=== PATIENT | female | born 1950 | race Caucasian/White ===

== ENCOUNTER → 2021-07-31 | Outpatient (CLI) | payer MEDICARE, BC ==
[~2021-07-31] MED LIST: ASPI81CH PO; CALCA400CH; MECL12.5 PO; Multiple Vitam1 EAC1 PO; VERA240ERB; [UNRECOGNIZED DRUG - REMARK]
== END | disposition home or self-care (01) ==
LOC: LAB SHORT 11:26
DX: D48.5 Neoplasm of uncertain behavior of skin (principal)
CPT/HCPCS: 88305

== ENCOUNTER → 2021-08-31 | Outpatient (CLI) | payer MEDICARE, BC | END | disposition home or self-care (01) | LOC: PLD 10:57 → LAB SHORT 10:57 | DX: D48.5 Neoplasm of uncertain behavior of skin (principal) | CPT/HCPCS: 88305 ==

== ENCOUNTER 2022-05-09 08:04 | Day surgery (SDC) | payer MEDICARE, BC ==
[~2022-05-09] VITALS: Ht 157.5 cm; Wt 60.0 kg
[2022-05-09] MEDS ORDERED: ATOR10 (08:39)
== END 2022-05-09 10:38 | disposition home or self-care (01) ==
LOC: ORSCSDS 08:04
PROVIDERS: Internal Medicine Gastroenterology
PROC: 0DBK8ZX Excision of Ascending Colon, Via Natural or Artificial Opening Endoscopic, Diagnostic (ICD-10-PCS; principal; 2022-05-09 09:30)
DX: Z12.11 Encounter for screening for malignant neoplasm of colon (principal); D12.2 Benign neoplasm of ascending colon; K57.30 Diverticulosis of large intestine without perforation or abscess without bleeding; Z80.0 Family history of malignant neoplasm of digestive organs; Z86.010 Personal history of colon polyps; Z79.82 Long term (current) use of aspirin; Z79.899 Other long term (current) drug therapy; Z87.891 Personal history of nicotine dependence
CPT/HCPCS: 88305; J2704; J7120

== ENCOUNTER 2023-02-13 06:18 | Day surgery (SDC) | payer MEDICARE, BC ==
[~2023-02-13] VITALS: Ht 157.5 cm; Wt 64.1 kg
[~2023-02-13 06:18] MED LIST changes: +ATOR10
[2023-02-13] MEDS ORDERED: VITAMIN D310 MC4 (06:33)
--- NOTE | 2023-02-13 06:40 | NUR ---
02/13/23 0640 Christy Michel AT [address] [id number]
[2023-02-13 08:00] VITALS: BP 117/83
--- NOTE | 2023-02-13 08:05 | NUR ---
02/13/23 0805 Zahra He IV REMOVED CANNULA INTACT, PT CONNIE WELL. IV SITE WNL. PT DENIES NAUSEA AND PAIN
== END 2023-02-13 08:12 | disposition home or self-care (01) ==
LOC: ORSCSDS 06:18
PROVIDERS: Student in an Organized Health Care Education/Training Program
PROC: 08RJ3JZ Replacement of Right Lens with Synthetic Substitute, Percutaneous Approach (ICD-10-PCS; principal; 2023-02-13 07:30)
DX: H25.13 Age-related nuclear cataract, bilateral (principal); Z87.891 Personal history of nicotine dependence; E78.00 Pure hypercholesterolemia, unspecified; Z79.82 Long term (current) use of aspirin; Z79.899 Other long term (current) drug therapy
CPT/HCPCS: J2001; J2250; J3010; J7040; V2632

== ENCOUNTER 2023-02-27 07:47 | Day surgery (SDC) | payer MEDICARE, BC ==
[~2023-02-27] VITALS: Ht 157.5 cm; Wt 63.5 kg
[~2023-02-27 07:47] MED LIST changes: +VITAMIN D310 MC4
[2023-02-27 08:50] VITALS: BP 130/78
== END 2023-02-27 09:00 | disposition home or self-care (01) ==
LOC: ORSCSDS 07:47
PROVIDERS: Student in an Organized Health Care Education/Training Program
PROC: 08RK3JZ Replacement of Left Lens with Synthetic Substitute, Percutaneous Approach (ICD-10-PCS; principal; 2023-02-27 09:00)
DX: H25.12 Age-related nuclear cataract, left eye (principal); Z96.1 Presence of intraocular lens; Z87.891 Personal history of nicotine dependence; Z79.899 Other long term (current) drug therapy; Z79.82 Long term (current) use of aspirin
CPT/HCPCS: J1815; J2250; J3010; J7040; V2632